=== PATIENT | female | born 1950 | race Caucasian/White ===

== ENCOUNTER 2022-06-26 14:07 | Emergency (ER) | payer MEDICARE, OTHER ==
[~2022-06-26] VITALS: Ht 160 cm; Wt 65.8 kg
[2022-06-26] MEDS ORDERED: LIDOCAINE VISCOUS 2% UD 15 ML UDC ONE (15:27)
[2022-06-26] MEDS ORDERED: KETOROLAC TROMETHAMINE INJ 30 MG/ML VIAL ONE (15:27)
[2022-06-26] MEDS ORDERED: LIDOCAINE VISCOUS 2% UD 15 ML UDC MM ONE (15:30)
[2022-06-26] MEDS ORDERED: KETOROLAC TROMETHAMINE INJ 60 MG/2 ML VIAL IM ONE (15:30)
--- NOTE | 2022-06-26 15:37 | NUR ---
SORETHROAT/COUGH AND LEFT EAR PAIN SINCE YESTERDAY
--- NOTE | 2022-06-26 15:42 | NUR ---
COVID SWAB COLLECTED AND SENT TO LAB
--- NOTE | 2022-06-26 15:49 | NUR ---
INFLUENZA SWAB SENT TO LAB
--- NOTE | 2022-06-26 16:59 | NUR ---
Patient discharged to home in stable condition. Written and verbal after care instructions given. Patient verbalizes understanding of instruction.
[2022-06-26 17:01] VITALS: BP 141/86
== END 2022-06-26 17:02 | disposition home or self-care (01) ==
LOC: ER 14:36
DX: J02.8 Acute pharyngitis due to other specified organisms (principal); B34.9 Viral infection, unspecified; Z20.822 Contact with and (suspected) exposure to COVID-19; Z88.0 Allergy status to penicillin
CPT/HCPCS: 99285; 71045; 87426; 96372; 93005; 87804 ×2; J1885; C9803